=== PATIENT | female | born 1965 | race Caucasian/White ===

== ENCOUNTER → 2016-09-12 | Outpatient (CLI) | payer OTHER ==
--- NOTE | 2016-09-13 07:32 | XR ---
EXAMINATION TYPE: XR chest 2V DATE OF EXAM: 09/12/2016 4:18 PM COMPARISON: NONE HISTORY: Shortness of breath TECHNIQUE: Frontal and lateral views of the chest are obtained. FINDINGS: Scattered senescent parenchymal changes noted. Hyperinflation compatible with COPD. No evidence for infiltrate. No evidence for atelectasis. Heart size is stable. Mediastinal structures are stable and grossly unremarkable. No evidence for hilar prominence. Degenerative changes dorsal spine. IMPRESSION: 1. No evidence for acute pulmonary disease.
== END | disposition home or self-care (01) ==
LOC: RADXRMAIN 16:04
PROVIDERS: ATTEND Family Medicine
DX: J44.0 Chronic obstructive pulmonary disease with (acute) lower respiratory infection (principal)
CPT/HCPCS: 71020

== ENCOUNTER → 2016-10-16 | Outpatient (CLI) | payer OTHER ==
--- NOTE | 2016-10-16 19:40 | CT ---
EXAMINATION TYPE: CT abdomen pelvis wo con DATE OF EXAM: 10/16/2016 7:24 PM COMPARISON: NONE HISTORY: RLQ PAIN WITH DIARRHEA X2 WEEKS. CT DLP: 471.2 mGycm Automated exposure control for dose reduction was used. TECHNIQUE: Helical acquisition of images was performed from the lung bases through the pelvis. FINDINGS: The lung bases are clear. There is no pleural effusion. Heart size is normal. There is a small hiatal hernia. There is no pericardial effusion. Liver spleen pancreas gallbladder appear normal. Bile ducts are not dilated. There is no adrenal mass . Kidneys have normal size and contour. There is no hydronephrosis. Ureters are not dilated. There is a 5 mm calculus in the lower pole right kidney. There is a 2 mm calculus in the upper pole right kid chio. There is no retroperitoneal adenopathy. There is no ascites. Appendix appears normal. I see no intest inal wall thickening. There are no dilated loops. Bladder distends smoothly. There is no sign of a pe lvic mass.: IMPRESSION: NONOBSTRUCTING RIGHT RENAL CALCULI. NORMAL APPENDIX. NO SIGN OF ACUTE ABDOMEN AND PELVIS. HIATAL HERNIA.
== END | disposition home or self-care (01) ==
LOC: RADCTMAIN 17:34
PROVIDERS: ATTEND Family Medicine
DX: N20.0 Calculus of kidney (principal); K44.9 Diaphragmatic hernia without obstruction or gangrene
CPT/HCPCS: 74176

== ENCOUNTER 2016-11-06 09:03 | Day surgery (SDC) | payer OTHER ==
[2016-11-01 15:44] VITALS: BMI 29.5
[~2016-11-06 09:03] MED LIST: LACTATED RINGERS 1,000 ML IV SCH
[2016-11-06 09:56] VITALS: TEMP 98.9
[2016-11-06] MEDS ORDERED: LIDOCAINE 1% 20 ML VIAL (10MG/ML) FOR IV START INTRADERMA ONE (10:05)
[2016-11-06] MEDS ORDERED: PROPOFOL 10 MG/ML 20 ML VIAL IV ONE (10:05)
--- NOTE | 2016-11-06 10:19 | P.PCN ---
Date of Procedure: 11/06/16 Procedure(s) Performed: BRIEF HISTORY: Patient is a 51-year-old pleasant white female, scheduled for an elective colonoscopy as a part of evaluation of change in bowel habits and prior history of colon polyps. Last colonoscopy was about 5 years according to the patient she was noted to have colon polyps. PROCEDURE PERFORMED: Colonoscopy. PREOPERATIVE DIAGNOSIS: History of colon polyps. IV sedation per Anesthesia. PROCEDURE: After informed consent was obtained, the patient, was brought into the endoscopy unit. IV conscious sedation was administered by Anesthesia under continuous monitoring. Digital rectal examination was normal. Initially the Olympus CF-160 flexible video colonoscope was then inserted in the rectum, gradually advanced into the cecum without any difficulty. Careful examination was performed as the scope was gradually being withdrawn. Ileocecal valve and the appendiceal orifice were visualized and appeared normal. Prep was excellent. Mucosa of the cecum, ascending colon, transverse colon, descending colon, sigmoid colon, and rectum appeared normal. Scattered sigmoid diverticulosis seen. Retroflexion was performed in the rectum and no lesions were seen. The patient tolerated the procedure well. IMPRESSION: Scattered sigmoid diverticulosis. Rest of the colon appeared normal with no evidence of colorectal neoplasia. RECOMMENDATIONS: Findings of this examination were discussed with the patient as well as her family. She was advised to have a repeat screening colonoscopy in 5 years because of the prior history of colon polyps
[2016-11-06 10:34] VITALS: PULSE 76; RESP 16
[2016-11-06 10:43] VITALS: BP 121/78
== END 2016-11-06 11:07 | disposition home or self-care (01) ==
LOC: ORWHC2ENDO 09:03
PROVIDERS: ATTEND Internal Medicine Gastroenterology
DX: K57.30 Diverticulosis of large intestine without perforation or abscess without bleeding (principal); Z86.010 Personal history of colon polyps; K21.9 Gastro-esophageal reflux disease without esophagitis; J45.909 Unspecified asthma, uncomplicated; J44.9 Chronic obstructive pulmonary disease, unspecified; Z72.0 Tobacco use; Z79.899 Other long term (current) drug therapy; Z88.1 Allergy status to other antibiotic agents; Z88.5 Allergy status to narcotic agent; Z88.0 Allergy status to penicillin
CPT/HCPCS: 45378; J2704

== ENCOUNTER → 2017-06-23 | Outpatient (CLI) | payer OTHER | END | disposition home or self-care (01) | LOC: RADECHMAIN 12:16 | PROVIDERS: ATTEND Family Medicine | DX: R00.2 Palpitations (principal) | CPT/HCPCS: 93270; 93271 ==

== ENCOUNTER 2017-09-25 14:40 | Emergency (ER) | payer OTHER ==
--- NOTE | 2017-09-25 15:24 | XR ---
EXAMINATION TYPE: XR chest 2V DATE OF EXAM: 09/25/2017 COMPARISON: 09/12/2016 HISTORY: Shortness of breath TECHNIQUE: Frontal and lateral views of the chest are obtained. FINDINGS: Scattered senescent parenchymal changes noted. Hyperinflation compatible with COPD. No evidence for infiltrate. No evidence for atelectasis. Heart size is stable. Mediastinal structures are stable and grossly unremarkable. No evidence for hilar prominence. Degenerative changes dorsal spine. IMPRESSION: 1. No evidence for acute pulmonary disease.
[2017-09-25] MEDS ORDERED: IBUPROFEN 600 MG TAB PO STA (15:51)
--- NOTE | 2017-09-25 15:57 | ED ---
General Adult HPI - General Chief complaint: ENT Stated complaint: FLU LIKE STYMPTOMS Time Seen by Provider: 09/25/17 14:43 Source: patient, RN notes reviewed Mode of arrival: ambulatory Limitations: no limitations - History of Present Illness Initial comments: Patient is a 52-year-old female who presents to the emergency room today with her 2 daughters for symptoms of upper respiratory infection. While patient's daughters were been seen here in the emergency room she began feeling sick for cell. She states she's had some bodyaches. Patient low-grade fever. Does been some cough congestion. Patient denies any liquids or symptoms. Patient denies any recent fever, chills, shortness of breath, chest pain, back pain, abdominal pain, nausea or vomiting, numbness or tingling, dysuria or hematuria, constipation or diarrhea, headaches or visual changes, or any other complaints. - Related Data Home Medications Medication Instructions Recorded Confirmed Albuterol Inhaler [Ventolin Hfa 1 - 2 puff INHALATION RT-Q4H PRN 09/25/17 Inhaler] Esomeprazole Magnesium [NexIUM] 40 mg PO DAILY 09/25/17 09/25/17 Nebivolol HCl [Bystolic] 10 mg PO HS 09/25/17 09/25/17 traZODone HCL [Desyrel] 100 mg PO HS 09/25/17 09/25/17 Allergies Allergy/AdvReac Type Severity Reaction Status Date / Time cephalexin [From Keflex] Allergy Unknown Verified 09/25/17 15:04 hydrocodone [From Vicodin] Allergy Vomiting Verified 09/25/17 15:04 Penicillins Allergy Unknown Verified 09/25/17 15:04 Review of Systems ROS Statement: Those systems with pertinent positive or pertinent negative responses have been documented in the HPI. ROS Other: All systems not noted in ROS Statement are negative. Past Medical History Past Medical History: Asthma, COPD, GERD/Reflux, Pneumonia Additional Past Medical History / Comment(s): palipations, diarrhea, History of Any Multi-Drug Resistant Organisms: None Reported Past Surgical History: Hysterectomy Additional Past Surgical History / Comment(s): oral surgery, cyst removed from ovary, Past Anesthesia/Blood Transfusion Reactions: No Reported Reaction Past Psychological History: No Psychological Hx Reported Smoking Status: Former smoker Past Alcohol Use History: None Reported Past Drug Use History: None Reported - Past Family History Father Family Medical History: Cancer Additional Family Medical History / Comment(s): brain Mother Family Medical History: Cancer Additional Family Medical History / Comment(s): thyroid Daughter(s) Family Medical History: Cancer General Exam - General Exam Comments Initial Comments: General: The patient is awake and alert, in no distress, and does not appear acutely ill. Eye: Pupils are equal, round and reactive to light, extra-ocular movements are intact. No nystagmus. There is normal conjunctiva bilaterally. No signs of icterus. Ears, nose, mouth and throat: There are moist mucous membranes and no oral lesions. Neck: The neck is supple, there is no tenderness or JVD. Cardiovascular: There is a regular rate and rhythm. No murmur, rub or gallop is appreciated. Respiratory: Lungs are clear to auscultation, respirations are non-labored, breath sounds are equal. No wheezes, stridor, rales, or rhonchi. Musculoskeletal: Normal ROM, no tenderness. Strength 5/5. Sensation intact. Pulses equal bilaterally 2+. Neurological: A&O x 3. CN II-XII intact, There are no obvious motor or sensory deficits. Coordination appears grossly intact. Speech is normal. Skin: Skin is warm and dry and no rashes or lesions are noted. Psychiatric: Cooperative, appropriate mood & affect, normal judgment. Limitations: no limitations Course Vital Signs 09/25/17 14:46 Temperature 100.2 F H Pulse Rate 104 H Respiratory 16 Rate Blood Pressure 142/88 O2 Sat by Pulse 95 Oximetry Medical Decision Making - Medical Decision Making Patient's chest x-ray is negative. Influenza and strep test are negative. Patient will be discharged home advised a viral illness and to continue with Tylenol Motrin for body aches and fever. Advised to follow-up with family doctor return here to the emergency room if any symptoms increase or worsen. - Lab Data Lab Results 09/25/17 09/25/17 Range/Units 15:08 15:08 Influenza Type A RNA Not Detected (Not Detectd) Influenza Type B (PCR) Not Detected (Not Detectd) Group A Strep Rapid Negative (Negative) Disposition Clinical Impression: Upper respiratory infection Disposition: HOME SELF-CARE Condition: Good Instructions: Upper Respiratory Infection (ED) Additional Instructions: Please use medication as discussed. Please follow-up with family doctor in the next 2 days of symptoms have not improved. Please return to emergency room if the symptoms increase or worsen or for any other concerns. Referrals: Jean-Paul Ferrer DO [Primary Care Provider] - 1-2 days Time of Disposition: 15:57
[2017-09-25 16:08] VITALS: BP 142/73; PULSE 88; RESP 18; TEMP 98.6
== END 2017-09-25 16:09 | disposition home or self-care (01) ==
LOC: EC 14:40
DX: J06.9 Acute upper respiratory infection, unspecified (principal); J44.9 Chronic obstructive pulmonary disease, unspecified; K21.9 Gastro-esophageal reflux disease without esophagitis; Z87.891 Personal history of nicotine dependence; Z79.899 Other long term (current) drug therapy; Z88.0 Allergy status to penicillin; Z88.1 Allergy status to other antibiotic agents; Z88.5 Allergy status to narcotic agent
CPT/HCPCS: 71046; 87081; 87430; 87502; 99283

== ENCOUNTER → 2017-11-26 | Outpatient (CLI) | payer OTHER ==
--- NOTE | 2017-11-27 11:30 | MM ---
Reason for exam: screening (asymptomatic). Last mammogram was performed 1 year and 4 months ago. History: Patient is postmenopausal. Physical Findings: A clinical breast exam by your physician is recommended on an annual basis and results should be correlated with mammographic findings. MG Screening Mammo w CAD Bilateral CC and MLO view(s) were taken. Prior study comparison: August 09, 2016, bilateral MG screening mammo w CAD. September 10, 2012, mammogram, performed at [facility]. There are scattered fibroglandular densities. There is chronic nodularity in the right breast. There is no discrete abnormality. ASSESSMENT: Benign, BI-RAD 2 RECOMMENDATION: Routine screening mammogram of both breasts in 1 year.
== END | disposition home or self-care (01) ==
LOC: RADMAMWWP 12:38
PROVIDERS: ATTEND Family Medicine
DX: Z12.31 Encounter for screening mammogram for malignant neoplasm of breast (principal)
CPT/HCPCS: 77067

== ENCOUNTER → 2017-12-24 | Outpatient (CLI) | payer OTHER ==
--- NOTE | 2017-12-24 11:17 | XR ---
EXAMINATION TYPE: XR hand complete bilateral DATE OF EXAM: 12/24/2017 COMPARISON: NONE HISTORY: Pain in both hands TECHNIQUE: Three views are submitted bilaterally. FINDINGS: The osseous structures are intact. Mild narrowing of the DIP, MCP and PIP joints. No erosive changes. And there is no acute fracture or dislocation. Chronic appearing deformity of the radiocarpal joint bilaterally may be on the basis of chronic arthropathy or developmental. IMPRESSION: 1. No definite acute fracture or dislocation if symptoms persist, follow-up study in 7 to 10 days wo uld be suggested. 2. Mild arthropathy.
== END | disposition home or self-care (01) ==
LOC: RADXRMAIN 10:47
PROVIDERS: ATTEND Family Medicine
DX: M19.041 Primary osteoarthritis, right hand (principal); M19.042 Primary osteoarthritis, left hand

== ENCOUNTER → 2017-12-31 | Outpatient (CLI) | payer OTHER ==
[2018-01-05 08:32] LABS: Cotinine <2.0 ng/mL (<2.0); Nicotine <2.0 ng/mL (<2.0)
== END | disposition home or self-care (01) ==
LOC: LABWHC1 11:02
PROVIDERS: ATTEND Internal Medicine Pulmonary Disease
DX: F17.200 Nicotine dependence, unspecified, uncomplicated (principal)
CPT/HCPCS: 36415; G0480; 80323

== ENCOUNTER → 2019-09-21 | Outpatient (CLI) | payer OTHER ==
[2019-09-21 09:24] LABS: Basophils % (A) 0 %; Eosinophils # (A) 0.1 k/uL (0-0.7); Eosinophils % (A) 2 %; HCT 40.2 % (34.0-46.0); HGB 13.2 gm/dL (11.4-16.0); Lymphocytes # (A) 1.4 k/uL (1.0-4.8); Lymphocytes % (A) 26 %; MCHC 32.8 g/dL (31.0-37.0); MCV 91.8 fL (80.0-100.0); Mean Platelet Volume 8.6; Monocytes # (A) 0.3 k/uL (0-1.0); Monocytes % (A) 5 %; Neutrophils # (A) 3.5 k/uL (1.3-7.7); Neutrophils % (A) 65 %; Platelet Count 290 k/uL (150-450); RBC 4.38 m/uL (3.80-5.40); RDW 12.7 % (11.5-15.5); WBC 5.3 k/uL (3.8-10.6)
[2019-09-21 17:07] LABS: African American GFR (CKD) 118.9 (60.0-200.0); Albumin 4.5 g/dL (3.80-4.90); Albumin/Globulin Ratio 2.25 (1.60-3.17); Anion Gap 6.8 mmol/L (4.00-12.00); Calcium 9.3 mg/dL (8.7-10.3); Carbon Dioxide 28.2 mmol/L (21.6-31.8); Chol/HDL Ratio 2.59; LDL Cholesterol,Calculated 95.8 mg/dL (0.0-131.0); Non-African American GFR(CKD) 102.6 (60.0-200.0); Potassium 4.6 mmol/L (3.5-5.5); Total Bilirubin 0.4 mg/dL (0.2-1.2); Total Protein 6.5 g/dL (6.2-8.2); VLDL Calculation 12.2 mg/dL (5.00-40.00)
[2019-09-21 17:14] LABS: T4, Free (Free Thyroxine) 1.3 ng/dL (0.80-1.80)
[2019-09-21 19:06] LABS: Hemoglobin A1C 5.3 % (4.0-6.0)
== END | disposition home or self-care (01) ==
LOC: LABWHC1 09:01
PROVIDERS: ATTEND Family Medicine
DX: K21.9 Gastro-esophageal reflux disease without esophagitis (principal); J44.9 Chronic obstructive pulmonary disease, unspecified; R41.3 Other amnesia
CPT/HCPCS: 36415; 80053; 80061; 82140; 83036; 84439; 84443; 85025

== ENCOUNTER 2019-09-30 17:41 | Emergency (ER) | payer OTHER ==
[2019-09-30] MEDS ORDERED: SODIUM CHLORIDE 0.9% 1,000 ML IV STA (18:16)
[2019-09-30 19:08] LABS: Basophils % (A) 0 %; Eosinophils # (A) 0.2 k/uL (0-0.7); Eosinophils % (A) 4 %; HCT 38.8 % (34.0-46.0); HGB 12.7 gm/dL (11.4-16.0); Lymphocytes # (A) 1.2 k/uL (1.0-4.8); Lymphocytes % (A) 26 %; MCH 29.4 pg (25.0-35.0); MCHC 32.8 g/dL (31.0-37.0); MCV 89.6 fL (80.0-100.0); Mean Platelet Volume 8.2; Monocytes # (A) 0.2 k/uL (0-1.0); Monocytes % (A) 5 %; Neutrophils # (A) 2.9 k/uL (1.3-7.7); Neutrophils % (A) 64 %; Platelet Count 233 k/uL (150-450); RBC 4.33 m/uL (3.80-5.40); RDW 12.7 % (11.5-15.5); WBC 4.6 k/uL (3.8-10.6)
[2019-09-30 19:10] LABS: ALT 26 U/L (4-34); AST 30 U/L (14-36); African American GFR (CKD) >90 (>60 ml/min/1.73 sqM); Albumin 4.1 g/dL (3.5-5.0); Alkaline Phosphatase 116 U/L (38-126); Anion Gap 7 mmol/L; Blood Urea Nitrogen 13 mg/dL (7-17); Calcium 8.7 mg/dL (8.4-10.2); Carbon Dioxide 25 mmol/L (22-30); Chloride 108 mmol/L (98-107); Glucose 86 mg/dL (74-99); Non-African American GFR(CKD) >90 (>60 ml/min/1.73 sqM); Potassium 3.8 mmol/L (3.5-5.1); Sodium 140 mmol/L (137-145); Total Bilirubin 0.4 mg/dL (0.2-1.3)
[2019-09-30 19:20] LABS: Appearance,Urine Cloudy (Clear); Bacteria,Urine Rare /hpf; Bilirubin,Urine Negative (Negative); Blood,Urine Negative (Negative); Calcium Oxalate Crystals,Urine Rare /hpf; Color,Urine Yellow; Glucose,Urine (UA) Negative (Negative); Ketones,Urine Negative (Negative); Leukocyte Esterase,Urine Large (Negative); Mucus,Urine Few /hpf; Nitrite,Urine Negative (Negative); Protein,Urine Trace (Negative); RBC,Urine 10 /hpf (0-5); Specific Gravity,Urine 1.026 (1.001-1.035); Squamous Epithelial Cell,Urine 27 /hpf (0-4); Urobilinogen,Urine <2.0 mg/dL (<2.0); WBC,Urine 8 /hpf (0-5)
--- NOTE | 2019-09-30 19:40 | ED ---
General Adult HPI - General Chief complaint: Abdominal Pain Stated complaint: Side Abd Pain Time Seen by Provider: 09/30/19 18:03 Source: patient, RN notes reviewed, old records reviewed Mode of arrival: ambulatory Limitations: no limitations - History of Present Illness Initial comments: 54-year-old female patient with past history asthma, COPD presents ED for chief complaint of abdominal pain. Patient reports that for the last 3 weeks she has been experiencing right lower quadrant abdominal pain. Patient reports that she presented initially to [facility] on 09/24 she had extensive investigations including CT abdomen and pelvis with contrast. Ultrasound of the gallbladder. Workup was negative. Patient also saw her primary care provider who recommended colonoscopy. Her symptoms include nausea without emesis. Denies any other complaints. Systemic: Pt denies fatigue, fever/chills, rash. Pt denies weakness, night sweats, weight loss. Neuro: Pt denies headache, visual disturbances, syncope or pre-syncope. HEENT: Pt denies ocular discharge or irritation, otalgia, rhinorrhea, pharyngitis or notable lymphadenopathy. Cardiopulmonary: Pt denies chest pain, SOB, heart palpitations, dyspnea on exertion. Abdominal/GI: Pt denies v/d. : Pt denies dysuria, burning w/ urination, frequency/urgency. Denies new onset urinary or bowel incontinence. MSK: Pt denies myalgia, loss of strength or function in extremities. Neuro: Pt denies new onset weakness, paresthesias. - Related Data Home Medications Medication Instructions Recorded Confirmed Albuterol Inhaler [Ventolin Hfa 1 - 2 puff INHALATION RT-Q4H PRN 09/25/17 09/25/17 Inhaler] Esomeprazole Magnesium [NexIUM] 40 mg PO DAILY 09/25/17 09/25/17 Nebivolol HCl [Bystolic] 10 mg PO HS 09/25/17 09/25/17 traZODone HCL [Desyrel] 100 mg PO HS 09/25/17 09/25/17 Allergies Allergy/AdvReac Type Severity Reaction Status Date / Time cephalexin [From Keflex] Allergy Unknown Verified 09/30/19 18:00 hydrocodone [From Vicodin] Allergy Vomiting Verified 09/30/19 18:00 Penicillins Allergy Unknown Verified 09/30/19 18:00 Review of Systems ROS Statement: Those systems with pertinent positive or pertinent negative responses have been documented in the HPI. ROS Other: All systems not noted in ROS Statement are negative. Past Medical History Past Medical History: Asthma, COPD, GERD/Reflux, Pneumonia Additional Past Medical History / Comment(s): palipations, diarrhea, History of Any Multi-Drug Resistant Organisms: None Reported Past Surgical History: Hysterectomy Additional Past Surgical History / Comment(s): cyst removed from ovary, Past Anesthesia/Blood Transfusion Reactions: No Reported Reaction Past Psychological History: No Psychological Hx Reported Smoking Status: Former smoker Past Alcohol Use History: None Reported Past Drug Use History: None Reported - Past Family History Father Family Medical History: Cancer Additional Family Medical History / Comment(s): brain Mother Family Medical History: Cancer Additional Family Medical History / Comment(s): thyroid Daughter(s) Family Medical History: Cancer General Exam - General Exam Comments Initial Comments: Constitutional: NAD, AOX3, Pt has pleasant affect. HEENT: NC/AT, trachea midline, neck supple, no lymphadenopathy. Posterior pharynx non erythematous, without exudates. External ears appear normal, without discharge. Mucous membranes moist. Eyes PERRLA, EOM intact. There is no scleral icterus. No pallor noted. Cardiopulmonary: RRR, no murmurs, rubs or gallops, no JVD noted. Lungs CTAB in anterior and posterior buckner. No peripheral edema. Abdominal exam: Abdomen soft and non-distended. Abdomen mildly tender to palpati on right lower quadrant. No Guarding, no rigidity, rosvings sign is negative.. Bowel sounds active in LLQ. No hepatosplenomegaly. No ecchymosis Neuro: CN II-XII grossly intact. No nuchal rigidity. No raccon eyes, no mackey sign, no hemotympanum. No cervical spinal tenderness. MSK: No posterior calf tenderness bilaterally, homans sign negative bilaterally. Posterior tibialis and radial pulse +2 bilaterally. Sensation intact in upper and lower extremities. Full active ROM in upper and lower extremities, 5/5 stregnth. Limitations: no limitations Course Vital Signs 09/30/19 09/30/19 17:57 20:00 Temperature 98.2 F 97.5 F L Pulse Rate 84 72 Respiratory 18 22 Rate Blood Pressure 132/73 143/93 O2 Sat by Pulse 99 97 Oximetry Medical Decision Making - Medical Decision Making 54-year-old female patient with past history asthma, COPD presents ED for chief complaint of abdominal pain. Patient reports that for the last 3 weeks she has been experiencing right lower quadrant abdominal pain. Patient reports that she presented initially to [facility] on 09/24 she had extensive investigations including CT abdomen and pelvis with contrast. Ultrasound of the gallbladder. Workup was negative. Patient also saw her primary care provider who recommended colonoscopy. Her symptoms include nausea without emesis. Denies any other complaints. Patient vital signs are stable, afebrile. Physical exam displayed a right lower quadrant tenderness. Laboratory investigations are non-impressive. KUB was obtained which is negative. Previous CAT scan report was reviewed and displayed no acute process. Patient was offered advanced imaging including CAT scan, patient declined. Patient continues to state that the pain is the same and unchanged. Patient preferred be discharged to follow-up with her primary care provider and follow up with her raker buffing wheel. Will return to ER if condition worsens. Case discussed with Dr. Dunlap. - Lab Data Result diagrams: 09/30/19 18:50 09/30/19 18:50 Lab Results 09/30/19 09/30/19 09/30/19 Range/Units 18:50 18:50 18:50 WBC 4.6 (3.8-10.6) k/uL RBC 4.33 (3.80-5.40) m/uL Hgb 12.7 (11.4-16.0) gm/dL Hct 38.8 (34.0-46.0) % MCV 89.6 (80.0-100.0) fL MCH 29.4 (25.0-35.0) pg MCHC 32.8 (31.0-37.0) g/dL RDW 12.7 (11.5-15.5) % Plt Count 233 (150-450) k/uL Neutrophils % 64 % Lymphocytes % 26 % Monocytes % 5 % Eosinophils % 4 % Basophils % 0 % Neutrophils # 2.9 (1.3-7.7) k/uL Lymphocytes # 1.2 (1.0-4.8) k/uL Monocytes # 0.2 (0-1.0) k/uL Eosinophils # 0.2 (0-0.7) k/uL Basophils # 0.0 (0-0.2) k/uL Sodium 140 (137-145) mmol/L Potassium 3.8 (3.5-5.1) mmol/L Chloride 108 H (98-107) mmol/L Carbon Dioxide 25 (22-30) mmol/L Anion Gap 7 mmol/L BUN 13 (7-17) mg/dL Creatinine 0.54 (0.52-1.04) mg/dL Est GFR (CKD-EPI)AfAm >90 (>60 ml/min/1.73 sqM) Est GFR (CKD-EPI)NonAf >90 (>60 ml/min/1.73 sqM) Glucose 86 (74-99) mg/dL Plasma Lactic Acid Enmanuel 0.6 L (0.7-2.0) mmol/L Calcium 8.7 (8.4-10.2) mg/dL Total Bilirubin 0.4 (0.2-1.3) mg/dL AST 30 (14-36) U/L ALT 26 (4-34) U/L Alkaline Phosphatase 116 (38-126) U/L Total Protein 7.0 (6.3-8.2) g/dL Albumin 4.1 (3.5-5.0) g/dL Lipase 197 (23-300) U/L Urine Color Urine Appearance (Clear) Urine pH (5.0-8.0) Ur Specific Oark (1.001-1.035) Urine Protein (Negative) Urine Glucose (UA) (Negative) Urine Ketones (Negative) Urine Blood (Negative) Urine Nitrite (Negative) Urine Bilirubin (Negative) Urine Urobilinogen (<2.0) mg/dL Ur Leukocyte Esterase (Negative) Urine RBC (0-5) /hpf Urine WBC (0-5) /hpf Ur Squamous Epith Cells (0-4) /hpf Calcium Oxalate Crystal (None) /hpf Urine Bacteria (None) /hpf Urine Mucus (None) /hpf 09/30/19 Range/Units 18:50 WBC (3.8-10.6) k/uL RBC (3.80-5.40) m/uL Hgb (11.4-16.0) gm/dL Hct (34.0-46.0) % MCV (80.0-100.0) fL MCH (25.0-35.0) pg MCHC (31.0-37.0) g/dL RDW (11.5-15.5) % Plt Count (150-450) k/uL Neutrophils % % Lymphocytes % % Monocytes % % Eosinophils % % Basophils % % Neutrophils # (1.3-7.7) k/uL Lymphocytes # (1.0-4.8) k/uL Monocytes # (0-1.0) k/uL Eosinophils # (0-0.7) k/uL Basophils # (0-0.2) k/uL Sodium (137-145) mmol/L Potassium (3.5-5.1) mmol/L Chloride (98-107) mmol/L Carbon Dioxide (22-30) mmol/L Anion Gap mmol/L BUN (7-17) mg/dL Creatinine (0.52-1.04) mg/dL Est GFR (CKD-EPI)AfAm (>60 ml/min/1.73 sqM) Est GFR (CKD-EPI)NonAf (>60 ml/min/1.73 sqM) Glucose (74-99) mg/dL Plasma Lactic Acid Enmanuel (0.7-2.0) mmol/L Calcium (8.4-10.2) mg/dL Total Bilirubin (0.2-1.3) mg/dL AST (14-36) U/L ALT (4-34) U/L Alkaline Phosphatase (38-126) U/L Total Protein (6.3-8.2) g/dL Albumin (3.5-5.0) g/dL Lipase (23-300) U/L Urine Color Yellow Urine Appearance Cloudy H (Clear) Urine pH 5.0 (5.0-8.0) Ur Specific O[place] 1.026 (1.001-1.035) Urine Protein Trace H (Negative) Urine Glucose (UA) Negative (Negative) Urine Ketones Negative (Negative) Urine Blood Negative (Negative) Urine Nitrite Negative (Negative) Urine Bilirubin Negative (Negative) Urine Urobilinogen <2.0 (<2.0) mg/dL Ur Leukocyte Esterase Large H (Negative) Urine RBC 10 H (0-5) /hpf Urine WBC 8 H (0-5) /hpf Ur Squamous Epith Cells 27 H (0-4) /hpf Calcium Oxalate Crystal Rare H (None) /hpf Urine Bacteria Rare H (None) /hpf Urine Mucus Few H (None) /hpf Disposition Clinical Impression: Abdominal pain Disposition: HOME SELF-CARE Condition: Stable Instructions (If sedation given, give patient instructions): Abdominal Pain (ED) Additional Instructions: Follow-up with primary care provider and raker buffing wheel tomorrow. Return to ER if condition worsens. Is patient prescribed a controlled substance at d/c from ED?: No Referrals: Jean-Paul Ferrer DO [Primary Care Provider] - 1-2 days Jasbir Mcgraw MD [STAFF PHYSICIAN] - 1-2 days
--- NOTE | 2019-09-30 19:57 | XR ---
EXAMINATION TYPE: XR KUB 2 UPRIGHT VIEWS DATE OF EXAM: 09/30/2019 7:35 PM CLINICAL HISTORY: Pain on the right TECHNIQUE: 2 upright views COMPARISON: None. FINDINGS: The visualized lung bases and pleural spaces are negative. There is no pneumoperitoneum. Scattered gas is seen in non-distended small bowel loops. Gas and fecal material is seen in non-distended colon. There is no visceromegaly or abnormal calcification appreci ated. The osseous structures are intact. IMPRESSION: No acute radiographic process.
[2019-09-30 20:21] VITALS: BP 143/93; PULSE 72; RESP 22; TEMP 97.5
[2019-09-30] MEDS ORDERED: ACET/COD 300 MG/30 MG STARTER PACK 6 TAB BTL PO STA (20:35)
== END 2019-09-30 21:12 | disposition home or self-care (01) ==
LOC: EC 17:41
DX: R10.31 Right lower quadrant pain (principal); R11.0 Nausea; J44.9 Chronic obstructive pulmonary disease, unspecified; K21.9 Gastro-esophageal reflux disease without esophagitis; Z87.891 Personal history of nicotine dependence; Z88.0 Allergy status to penicillin; Z88.1 Allergy status to other antibiotic agents; Z88.5 Allergy status to narcotic agent; Z79.899 Other long term (current) drug therapy; Z53.20 Procedure and treatment not carried out because of patient's decision for unspecified reasons
CPT/HCPCS: 36415; 74018; 80053; 81001; 83605; 83690; 85025; 96360; 96361; 99284

== ENCOUNTER → 2019-11-04 | Outpatient (CLI) | payer OTHER ==
--- NOTE | 2019-11-04 15:57 | US ---
EXAMINATION TYPE: US kidneys/renal and bladder DATE OF EXAM: 11/04/2019 COMPARISON: NONE CLINICAL HISTORY: N28.1 cyst on kidney. Right flank pain, patient states cystic area left kidney visu alized on recent MRI EXAM MEASUREMENTS: Right Kidney: 11.7 x 5.6 x 3.6 cm Left Kidney: 11.4 x 5.6 x 4.9 cm Right Kidney: no evidence of hydronephrosis Left Kidney: cystic area mid= 1.1 x 1.0 x 1.2cm Bladder: appears wnl Bilateral Jets seen: yes There is no evidence for hydronephrosis at this point in time. No nephrolithiasis is seen. The urina ry bladder is anechoic. Bilateral ureteral jets are seen. IMPRESSION: Incidental right renal cyst, simple and benign appearing. Otherwise unremarkable renal ul trasound. No hydronephrosis or nephrolithiasis.
== END | disposition home or self-care (01) ==
LOC: RADUSWWP 15:18
PROVIDERS: ATTEND Family Medicine
DX: N28.1 Cyst of kidney, acquired (principal); Z88.0 Allergy status to penicillin; Z88.5 Allergy status to narcotic agent; Z88.1 Allergy status to other antibiotic agents
CPT/HCPCS: 76770

== ENCOUNTER 2019-11-09 19:15 | Emergency (ER) | payer OTHER ==
[2019-11-09] MEDS ORDERED: IPRATROPIUM-ALBUTEROL 3 ML NEB INHALATION STA (21:55)
[2019-11-09] MEDS ORDERED: ALBUTEROL NEBULIZED 2.5 MG/3 ML INHALATION STA (21:55)
--- NOTE | 2019-11-09 21:57 | ED ---
URI HPI - General Chief Complaint: Upper Respiratory Infection Stated Complaint: cough, SOB Time Seen by Provider: 11/09/19 21:00 Source: patient Mode of arrival: ambulatory Limitations: no limitations - History of Present Illness MD Complaint: cough, sore throat Onset/Timin -: days(s) Consistency: constant Improves With: nothing Worsens With: nothing Associated Symptoms: rhinorrhea, nasal congestion, cough, shortness of breath Treatments Prior to Arrival: antibiotics, other (Prednisone) - Related Data Home Medications Medication Instructions Recorded Confirmed Albuterol Inhaler [Ventolin Hfa 1 - 2 puff INHALATION RT-Q4H PRN 09/25/17 09/25/17 Inhaler] Esomeprazole Magnesium [NexIUM] 40 mg PO DAILY 09/25/17 09/25/17 Nebivolol HCl [Bystolic] 10 mg PO HS 09/25/17 09/25/17 traZODone HCL [Desyrel] 100 mg PO HS 09/25/17 09/25/17 Previous Rx's Medication Instructions Recorded Azithromycin [Zithromax Z-pack] 250 mg PO DIRECTED #6 tab 11/09/19 Allergies Allergy/AdvReac Type Severity Reaction Status Date / Time cephalexin [From Keflex] Allergy Unknown Verified 09/30/19 18:00 hydrocodone [From Vicodin] Allergy Vomiting Verified 09/30/19 18:00 Penicillins Allergy Unknown Verified 09/30/19 18:00 Review of Systems ROS Statement: Those systems with pertinent positive or pertinent negative responses have been documented in the HPI. ROS Other: All systems not noted in ROS Statement are negative. Constitutional: Denies: fever, chills ENT: Reports: congestion Respiratory: Reports: cough, dyspnea, wheezes Cardiovascular: Denies: chest pain, palpitations, syncope Gastrointestinal: Denies: abdominal pain, nausea, vomiting Genitourinary: Denies: dysuria, hematuria Musculoskeletal: Denies: back pain Skin: Denies: rash Neurological: Denies: headache, weakness Past Medical History Past Medical History: Asthma, COPD, GERD/Reflux, Pneumonia Additional Past Medical History / Comment(s): palipations, diarrhea, History of Any Multi-Drug Resistant Organisms: None Reported Past Surgical History: Hysterectomy Additional Past Surgical History / Comment(s): cyst removed from ovary, Past Anesthesia/Blood Transfusion Reactions: No Reported Reaction Past Psychological History: No Psychological Hx Reported Smoking Status: Former smoker Past Alcohol Use History: None Reported Past Drug Use History: None Reported - Past Family History Father Family Medical History: Cancer Additional Family Medical History / Comment(s): brain Mother Family Medical History: Cancer Additional Family Medical History / Comment(s): thyroid Daughter(s) Family Medical History: Cancer General Exam Limitations: no limitations General appearance: alert, in no apparent distress Head exam: Present: atraumatic, normocephalic Eye exam: Present: normal appearance. Absent: scleral icterus, conjunctival injection ENT exam: Present: normal oropharynx Neck exam: Present: normal inspection Respiratory exam: Present: wheezes, chest wall tenderness. Absent: respiratory distress, rales, rhonchi, stridor, accessory muscle use, decreased breath sounds, prolonged expiratory Cardiovascular Exam: Present: regular rate, normal rhythm, normal heart sounds. Absent: systolic murmur, diastolic murmur, rubs, gallop GI/Abdominal exam: Present: soft. Absent: distended, tenderness, guarding, rebound, rigid, mass Extremities exam: Present: normal inspection, normal capillary refill. Absent: pedal edema, calf tenderness Back exam: Present: normal inspection. Absent: CVA tenderness (R), CVA tenderness (L) Neurological exam: Present: alert Skin exam: Present: warm, dry, intact, normal color. Absent: rash Course Vital Signs 11/09/19 11/09/19 11/09/19 20:06 21:59 22:12 Temperature 98.9 F Pulse Rate 122 H 108 H 110 H Respiratory 18 18 20 Rate Blood Pressure 134/83 O2 Sat by Pulse 95 Oximetry 11/09/19 11/09/19 22:35 23:53 Temperature 97.9 F Pulse Rate 104 H 100 Respiratory 20 18 Rate Blood Pressure 136/81 124/94 O2 Sat by Pulse 96 95 Oximetry Medical Decision Making - Lab Data Lab Results 11/09/19 Range/Units 20:09 Influenza Type A RNA Not Detected (Not Detectd) Influenza Type B (PCR) Not Detected (Not Detectd) Disposition Clinical Impression: Pneumonia Disposition: ADMITTED IP TO THIS HOSP Condition: Good Instructions (If sedation given, give patient instructions): Pneumonia (ED) Prescriptions: Azithromycin [Zithromax Z-pack] 250 mg PO DIRECTED #6 tab Is patient prescribed a controlled substance at d/c from ED?: No Referrals: Jean-Paul Ferrer DO [Primary Care Provider] - 1-2 days
[2019-11-09] MEDS ORDERED: AZITHROMYCIN 500 MG TAB PO STA (23:47)
[2019-11-09 23:57] VITALS: BP 124/94; PULSE 100; RESP 18; TEMP 97.9
--- NOTE | 2019-11-10 00:13 | XR ---
EXAMINATION TYPE: XR chest 2V DATE OF EXAM: 11/09/2019 COMPARISON: 09/25/2017 HISTORY: Cough TECHNIQUE: FINDINGS: There is a small infiltrate behind the heart in the left lower lobe. The other lung buckner are clear. Diaphragm is normal. Bony thorax is intact. IMPRESSION: There is a small left lower lobe pneumonia that appears new compared to old exam.
== END 2019-11-09 23:59 | disposition other institution (70) ==
LOC: EC 19:15
DX: J18.9 Pneumonia, unspecified organism (principal); J44.9 Chronic obstructive pulmonary disease, unspecified; K21.9 Gastro-esophageal reflux disease without esophagitis; Z87.891 Personal history of nicotine dependence; Z79.899 Other long term (current) drug therapy; Z88.1 Allergy status to other antibiotic agents; Z88.5 Allergy status to narcotic agent; Z88.0 Allergy status to penicillin
CPT/HCPCS: 71046; 87502; 94640; 99285

== ENCOUNTER → 2020-10-27 | Outpatient (CLI) | payer OTHER ==
[~2020-10-27] MED LIST changes: +IODINE/POTASS IOD (LUGOLS) BOTTLE TOPICAL ONE; -LACTATED RINGERS 1,000 ML IV SCH
--- NOTE | 2020-10-29 14:43 | NM ---
EXAMINATION TYPE: NM DatScan Brain SPECT DATE OF EXAM: 10/27/2020 COMPARISON: CT brain August 09, 2016 HISTORY: Essential tremor. TECHNIQUE: 10 drops of Lugol's solution was administered 1 hour prior to injection as a thyroid bloc juan agent. After the administration of 4.69 mCi I-123 Ioflupane DaTscan. Images obtained 3 hours p ost injection. SPECT images of the brain were acquired with axial and coronal reconstructions. FINDINGS: The DaTSCAN demonstrates normal uptake of tracer throughout the striata. Consequently there is no evidence of loss of the pre-synaptic dopaminergic terminals on this investig ation. IMPRESSION: This normal appearance is against a diagnosis of idiopathic Parkinson?s disease (PD) or a Parkinsonia n syndrome (PS) and is seen in healthy individuals and also patients with essential tremor (ET), drug induced parkinsonism, and vascular pseudo-parkinsonism.
== END | disposition home or self-care (01) ==
LOC: RADNMMAIN 10:46
PROVIDERS: ATTEND Psychiatry & Neurology Neurology
DX: G25.0 Essential tremor (principal)
CPT/HCPCS: 78803; A9584

== ENCOUNTER → 2022-04-04 | Outpatient (CLI) | payer OTHER ==
--- NOTE | 2022-04-04 14:33 | XR ---
EXAMINATION TYPE: XR chest 2V DATE OF EXAM: 04/04/2022 1:24 PM COMPARISON: Chest radiographs from 11/09/2019. TECHNIQUE: XR chest 2V Frontal and lateral views of the chest. CLINICAL INDICATION:Female, 57 years old with history of COPD J44.9, RT KNEE PAIN M25.561; FINDINGS: Lungs/Pleura: There is flattening of the diaphragm with increased lucency of the lungs. No evidence o f pneumothorax, pleural effusion or focal consolidation. Pulmonary vascularity: Unremarkable. Heart/mediastinum: Cardiomediastinal silhouette is unremarkable. Musculoskeletal: No acute osseous pathology. IMPRESSION: 1. No acute cardiopulmonary disease process. 2. COPD changes.
--- NOTE | 2022-04-04 16:03 | XR ---
EXAMINATION TYPE: XR knee 4V RT DATE OF EXAM: 04/04/2022 COMPARISON: NONE HISTORY: 57-year-old female right knee pain, M2 5.561 TECHNIQUE: 4 views FINDINGS: Extensor mechanism is intact. No knee joint effusion. Minimal marginal spurring at the patellofemoral compartment. There may be mild joint space narrowing along the lateral aspect of the patellofemoral compartment on the merchant's view. No acute fracture, subluxation, or dislocation. IMPRESSION: Mild degenerative spurring and joint space narrowing in the patellofemoral compartment. No acute osse ous abnormality seen.
== END | disposition home or self-care (01) ==
LOC: RADXRMAIN 13:00
PROVIDERS: ATTEND Family Medicine
DX: J44.9 Chronic obstructive pulmonary disease, unspecified (principal); M25.561 Pain in right knee
CPT/HCPCS: 71046

== ENCOUNTER → 2022-04-04 | Outpatient (CLI) | payer OTHER ==
--- NOTE | 2022-04-04 17:43 | BD ---
EXAMINATION TYPE: Axial Bone Density DATE OF EXAM: 04/04/2022 COMPARISON: FIRST DEXA AT [facility] CLINICAL HISTORY: 57 years year old Female. ICD-10 CODE: M81.0 AGE-RELATED OSTEOPOROSIS Height: 63IN Weight: 207 FRAX RISK QUESTIONS: Family History (Parent hip fracture): YES Secondary Osteoporosis: RISK FACTORS HISTORY OF: Family History of Osteoporosis: YES Active: YES Diet low in dairy products/other sources of calcium: NO Postmenopausal woman: YES TOTAL HYST AT 47 MEDICATIONS: Prednisone or other steroids: OFF AND ON FOR COPD How Long: Thyroid Medications: Which medication: Levothyroxine How Lon YEARS Additional Medications: REFLUX MED, CARDIAC MED, TREMOR MED Additional History: EXAM MEASUREMENTS: Bone mineral densitometry was performed using the [employer] System. Bone mineral density as measured about the Lumbar spine is: ----- L1-L4(G/cm2): 0.976 T Score Values are as follows: ----- L1: -1.9 ----- L2: -1.6 ----- L3: -1.7 ----- L4: -1.7 ----- L1-L4: -1.7 FIRST DEXA AT [facility] Bone mineral density about the R hip (g/cm2): 0.836 Bone mineral density about the L hip (g/cm2): 0.859 T Score values are as follows: -----R Neck: -2.0 -----L Neck: -1.8 -----R Total: -1.4 -----L Total: -1.2 FIRST DEXA AT [facility] FRAX%s: The graph provided illustrates a 15.8% chance for a major osteoporotic fx and a 1.0% chance f or the hips probability for fx in 10 years time. IMPRESSION: Osteopenia (T Score between -2.5 and -1). There is slightly increased risk of fracture and the patient may be considered for treatment. Re-Screen 2-5 years. NOTE: T-SCORE=SD OF THE YOUNG ADULT MEAN.
[2022-04-04 18:15] LABS: Basophils # (A) 0.04 X 10*3/uL (0.00-0.10); Basophils % (A) 0.7 %; Eosinophils # (A) 0.24 X 10*3/uL (0.04-0.35); Eosinophils % (A) 4.3 %; HCT 41.1 % (37.2-46.3); Immature Grans, Automated 0.2 %; Lymphocytes # (A) 1.24 X 10*3/uL (0.90-5.00); Lymphocytes % (A) 22.5 %; MCH 28.3 pg (27.0-32.0); MCHC 31.6 g/dL (32.0-37.0); MCV 89.5 fL (80.0-97.0); Mean Platelet Volume 11.5 fL (9.5-12.2); Monocytes # (A) 0.41 X 10*3/uL (0.20-1.00); Monocytes % (A) 7.4 %; NRBC Per 100 WBC 0 /100 WBCS (0.0-0.0); Neutrophils # (A) 3.58 X 10*3/uL (1.80-7.70); Neutrophils % (A) 64.9 %; Platelet Count 288 X 10*3/uL (140-440); RBC 4.59 X 10*6/uL (4.10-5.20); RDW 13.2 % (11.5-14.5); WBC 5.52 X 10*3/uL (4.50-10.00)
[2022-04-04 18:42] LABS: ALT 21 U/L (8-44); AST 24 U/L (13-35); African American GFR (CKD) 118.6 (60.0-200.0); Albumin 4.6 g/dL (3.8-4.9); Albumin/Globulin Ratio 1.57 (1.60-3.17); Alkaline Phosphatase 125 U/L (41-126); BUN/Creat Ratio 19.54 Ratio (12.00-20.00); Blood Urea Nitrogen 11.1 mg/dL (9.0-27.0); Calcium 9.3 mg/dL (8.7-10.3); Carbon Dioxide 23.8 mmol/L (20.0-27.5); Chloride 104 mmol/L (96-109); Chol/HDL Ratio 3.27 Ratio; Globulin 2.9 g/dL (1.6-3.3); Glucose 98 mg/dL (70-110); Non-African American GFR(CKD) 102.3 (60.0-200.0); Potassium 3.9 mmol/L (3.5-5.5); Sodium 141 mmol/L (135-145); Total Protein 7.5 g/dL (6.2-8.2)
--- NOTE | 2022-04-05 08:21 | MM ---
Reason for Exam: Screening (asymptomatic). Last mammogram was performed 4 year(s) and 5 month(s) ago. Patient History: Menarche at age 13. First Full-Term at age 16. Left ovary removed at age 48. Right ovary removed at age 48. Hysterectomy at age 48. Postmenopausal. Risk Values: Emily 5 year model risk: 0.9%. NCI Lifetime model risk: 5.1%. Prior Study Comparison: 09/10/2012 [facility]. 08/09/2016 Bilateral Screening Mammogram, [facility]. 11/26/2017 Bilateral Screening Mammogram, [facility]. Tissue Density: The breast tissue is almost entirely fat. Findings: Analyzed By CAD. There is no suspicious group of microcalcifications or new suspicious mass in either breast. Overall Assessment: Negative, BI-RAD 1 Management: Screening Mammogram of both breasts in 1 year. A clinical breast exam by your physician is recommended on an annual basis and results should be correlated with mammographic findings. Electronically signed and approved by: Dav Lazcano DO
== END | disposition home or self-care (01) ==
LOC: RADMAMWWP 13:27
PROVIDERS: ATTEND Family Medicine
DX: Z12.31 Encounter for screening mammogram for malignant neoplasm of breast (principal); Z78.0 Asymptomatic menopausal state; E55.9 Vitamin D deficiency, unspecified
CPT/HCPCS: 77067; 77080; 80053; 80061; 82306; 83036; 84439; 84443; 85025; 85379

== ENCOUNTER → 2023-04-14 | Outpatient (CLI) | payer OTHER ==
--- NOTE | 2023-04-14 15:12 | NM ---
EXAMINATION TYPE: NM bone scan whole body DATE OF EXAM: 04/14/2023 COMPARISON: NONE CLINICAL INDICATION: Female, 58 years old with history of R07.82 INTERCOSTAL PAIN; Delayed whole-body scanning was performed following the injection of 20 mCi Tc 99m MDP. Images acqui red 3.5 hours post injection. FINDINGS: No abnormal uptake is identified within the appendicular or axial skeleton. There is increased uptake within the bilateral shoulder, bilateral feet and sternoclavicular joints consistent with degenerative changes. No other photopenic areas or areas of increased activity are id entified. No focal uptake identified within the ribs. Physiologic radiotracer activity is demonstrated in the kidneys and bladder. IMPRESSION: No abnormal uptake to suggest fracture or metastatic disease.
== END | disposition home or self-care (01) ==
LOC: RADNMMAIN 09:53
PROVIDERS: ATTEND Family Medicine
DX: R07.82 Intercostal pain (principal)
CPT/HCPCS: 78306; A9503

== ENCOUNTER → 2024-04-01 | Outpatient (CLI) | payer BC ==
--- NOTE | 2024-04-23 15:57 | SLS ---
SLEEP STUDY STUDY: Home sleep study. HISTORY OF PRESENT ILLNESS: This is a 59-year-old female patient with symptoms of chronic cough/suspected cough variant asthma. She has also history of severe GE reflux and during her last office evaluation, she was suspected to have obstructive sleep apnea and based on that, a screening polysomnography was ordered. She is an ex-smoker. PERTINENT PHYSICAL FINDINGS: The patient's body mass index was 39.3 with a weight of 222 pounds. TECHNICAL DESCRIPTION: The [employer] system was used to complete this home sleep study. This is a type 3 home sleep study. Total recording duration was 7 hours and 5 minutes. This study started at 9:35 p.m., ended at 4:40 a.m. There was a total of 6 hours and 51 minutes of flow monitoring and 6 hours and 55 minutes of oxygen saturation monitoring. RESULTS: Respiratory analysis showed a total of 3 obstructive apneas and 98 obstructive hypopneas. The resulting AHI was 14.7. OXYGENATION ANALYSIS: The benign pulse ox while awake was 95%. Average pulse ox during sleep was 90% with a minimum pulse ox of 84% and the patient spent approximately 1 hour and 20 minutes of sleep time with a pulse ox of 89%. CARDIAC SUMMARY: Average heart rate was 71, minimum 51, maximum heart rate is 101. IMPRESSION: 1. Mild obstructive sleep apnea, AHI of 14.7. 2. Obesity with a BMI of 39.3. 3. Chronic cough. 4. Chronic GE reflux. PLAN: We will discuss findings with the patient. Her history suggests CPAP therapy regarding her sleep apnea treatment. We will offer the patient APAP machine, pressures of 5 to 15 cm of water. The patient is willing to undertake the treatment. Maintain good sleep hygiene measures. Maintain regular sleep schedule. Followup at the pulmonary clinic to assess compliancy and clinical response to CPAP therapy. MMODL / IJN: [id number] /
== END ==
LOC: 3 N SLEEP 16:31
PROVIDERS: ATTEND Internal Medicine Critical Care Medicine
DX: G47.33 Obstructive sleep apnea (adult) (pediatric) (principal); E66.9 Obesity, unspecified; R05.3 Chronic cough; K21.00 Gastro-esophageal reflux disease with esophagitis, without bleeding; Z68.39 Body mass index [BMI] 39.0-39.9, adult; Z88.1 Allergy status to other antibiotic agents; Z88.5 Allergy status to narcotic agent; Z88.0 Allergy status to penicillin; Z87.891 Personal history of nicotine dependence

== ENCOUNTER → 2024-05-12 | Outpatient (CLI) | payer BC ==
--- NOTE | 2024-05-12 15:18 | CT ---
EXAMINATION TYPE: CT chest w con CT DLP: 462.9 mGycm, Automated exposure control for dose reduction was used. DATE OF EXAM: 05/12/2024 2:57 PM COMPARISON: 10/16/2016. CLINICAL INDICATION: Female, 59 years old with history of R91.8 ABNORMAL IMAGING; Chest congestion, S OB, suspected scar tissue of lungs. TECHNIQUE: Multiple axial images were obtained through the chest. Sagittal and coronal reformats were created for review. Contrast used:100 ml mL of Isovue 300 with IV Contrast (None if empty) Oral contrast used: (None if empty) FINDINGS: LUNGS/ PLEURA: No evidence for focal consolidation, pneumothorax or pleural effusion. Mild suspected atelectasis changes near the medial aspect of the right lower lobe. Streaky atelectasis in the left l [place] base. AIRWAY: Patent and unremarkable. HEART: Size within normal limits. MEDIASTINUM: No gross evidence of adenopathy. VASCULATURE: No aortic aneurysm. MUSCULOSKELETAL: Mild disc degeneration changes are present throughout the thoracolumbar spine. Few s cattered vertebral body hemangiomas at T4 , T6 and T10. SOFT TISSUES/LYMPH NODES: Unremarkable. LOWER NECK: No significant findings. UPPER ABDOMEN: Diffuse low-attenuation to the liver parenchyma. Small hiatal hernia. IMPRESSION: 1. No evidence for acute process within the thorax. No evidence lymphadenopathy or suspicious nodule s. No evidence for interstitial lung disease. 2. Hepatic steatosis. 3. Small hiatal hernia.
== END | disposition home or self-care (01) ==
LOC: RADCTMAIN 14:22
PROVIDERS: ATTEND Internal Medicine
DX: R91.8 Other nonspecific abnormal finding of lung field
CPT/HCPCS: 71260